=== PATIENT | female | born 1985 | race Caucasian/White ===

== ENCOUNTER 2016-08-18 03:34 | Emergency (ER) | payer OTHER ==
[~2016-08-18] VITALS: Ht 172.7 cm; Wt 93.0 kg
[~2016-08-18 03:34] MED LIST: LEVO75TA4 PO; LEVO88TA3 PO; ONDA4TAB6 PO; PROP20TA5 PO; SUMA4KIT SQ
[2016-08-18 03:37] VITALS: BP 169/109; PULSE 81; RESP 16; O2SAT 99
[2016-08-18] MEDS ORDERED: 0.9% Sodium Chloride 1,000 ML IV ONE (04:14)
[2016-08-18] MEDS ORDERED: Ondansetron 2 mg/mL 2 mL Inj IVPUSH PRN (04:15)
[2016-08-18] MEDS ORDERED: Ketorolac 15 mg/mL Inj IVPUSH ONE (04:15)
[2016-08-18 04:23] LABS: BASOPHILS % (AUTO) 0.4 % (0-3); MONOCYTES % (AUTO) 5.7 % (4-12); Mean Corpuscular Hemoglobin 27.3 pg (27.0-35.0); Mean Corpuscular Volume 80.2 fL (81-100); NEUTROPHILS % (AUTO) 77.4 % (40-74); Platelet Count 426 bil/L (150-400)
[2016-08-18] MEDS: HYDROmorphone 0.5 mg/0.5 mL iSecure Syringe IVPUSH PRN ×3 (04:39→07:42)
--- NOTE | 2016-08-18 05:08 | ED.REPORT ---
HPI-Abd Pain F Under 41 Date of Service August 18, 2016 ED Provider: Alexy Flynn MD A 30 year old female with a history of kidney stones and chronic migraines presents to the ED with left flank pain that began at 0000 this evening. Patient reports similar pain during her previous episode of kidney stones. Associated symptoms include nausea, vomiting and abdominal discomfort. Patient was asymptomatic yesterday. She denies any dysuria. Her last menstrual cycle was 07/17 and patient is currently on Mirena. Nursing Notes Stated Complaint: ABDOMINAL PAIN Chief Complaint: Female Abdominal Pain Nursing Notes Reviewed: Yes Allergies: Coded Allergies: Sulfa (Sulfonamide Antibiotics) (Verified Allergy, Severe, facial swelling , 03/12/16) doxycycline (Verified Allergy, Intermediate, nausea, vomiting, 03/12/16) guaifenesin (Verified Allergy, Intermediate, nausea, vomiting, 03/12/16) Scheduled Levothyroxine (Synthroid) 88 Mcg Tablet 88 MCG PO Sat/Sun Levothyroxine (Levothyroxine) 75 Mcg Tablet 75 MCG PO Sat,Sat,Sat,,Fr Propranolol HCl (Propranolol HCl) 20 Mg Tablet 20 MG PO BID Tamsulosin (Flomax) 0.4 Mg Capsule 0.4 MG PO DAILY Scheduled PRN Hydrocodone-Acetaminophen 5-325 mg (Hydrocodone-Acetaminophen 5-325 mg) 1 Each Tablet 1-2 TABLET PO Q4H PRN PRN For Pain Ondansetron (Zofran) 4 Mg Tablet 4 MG PO Q4H PRN PRN For Nausea Sumatriptan Succinate (Imitrex) 4 Mg/0.5 Ml Cartridge 4 MG SQ PRN Headache General Time Seen by MD: 04:14 Chief Complaint Flank pain left Hx Obtained From: Patient Arrived By: Walk-in Sudden in Onset?: Yes Onset Occurred: Just prior to arrival Symptom Duration: Since onset Progression since Onset: Unchanged Location: : Flank left Quality: Painful Radiation: : Abdomen lower Severity: Current: Moderate Severity: Maximum: Moderate Associated with: Reports: Nausea, Vomiting Pertinent Negative: Pt denies other symptoms Sexual History / Control: Reports IUD Recent Healthcare: No recent doctor visit, No recent hospitalization Past Medical History Past Medical History Hx of migraine headaches Past Surgical History none reported Smoking History Never Smoker Social History Alcohol Use: "Social" Drug Use: Denies drug use Ambulatory Status Independent Review of Systems GI: Reports: Abdominal pain, Nausea, Vomiting Female: Reports: Flank pain (Left ), Denies: Dysuria, Complete sys rev & neg: except as marked. Physical Exam Initial Vital Signs Vital Signs (First) Date Time Temp Pulse Resp B/P Pulse Ox O2 Delivery O2 Flow Rate FiO2 08/18/16 03:37 36.5 81 16 169/109 99 Room Air Initial VS: Reviewed, Vital signs abnormal Head / Eyes: Atraumatic, Normocephalic, PERRL Neck: Supple, Non-tender, Full range of motion Extremities: Vascular intact, Neuro intact, No swelling, No tenderness Skin: Warm, Dry, No cyanosis Neurologic: Alert, Oriented, Nonfocal Psychiatric: Mood/affect normal, Behavior normal, Normal thought content General/Constitutional: Awake, Alert Distress / Hydration: Positive: Distress moderate Appearance / Presentation: Positive: Pale Respiratory / Chest: Atraumatic, Breath sounds NL, Breath sounds = bilat, No respiratory distress Cardiovascular: Heart rate NL, Regular rhythm, Heart sounds NL Abdomen: Atraumatic, Soft Tenderness/Guarding/Rebound: Positive: Guarding involuntary, Tender LLQ..., Tender LUQ..., Tender flank L Back: Atraumatic Flank / Spine / Paraspinal: Positive: Flank tender L Interpretation & Diagnostics Lab Results Interpretation Result Diagram: 08/18/16 0408 08/18/16 0408 Test 08/18/16 04:08 08/18/16 04:30 White Blood Count 11.5th/mm3 (3.8-10.1) Red Blood Count 5.45mil/mm3 (3.90-5.20) Hemoglobin 14.9g/dL (12.0-15.6) Hematocrit 43.7% (35.0-46.0) Mean Corpuscular Volume 80.2fL (81-100) Mean Corpuscular Hemoglobin 27.3pg (27.0-35.0) Mean Corpuscular Hemoglobin Concent 34.1% (32.0-37.0) Red Cell Distribution Width 13.3% (12.3-15.4) Platelet Count 426bil/L (150-400) Neutrophils (%) (Auto) 77.4% (40-74) Lymphocytes (%) (Auto) 15.2% (14-46) Monocytes (%) (Auto) 5.7% (4-12) Eosinophils (%) (Auto) 1.0% (0-5) Basophils (%) (Auto) 0.4% (0-3) Sodium Level 140mEq/L (134-144) Potassium Level 3.6mEq/L (3.5-5.2) Chloride Level 100mEq/L (97-108) Carbon Dioxide Level 23mmol/L (18-29) Blood Urea Nitrogen 11mg/dL (6-20) Creatinine 0.76mg/dL (0.57-1.00) Estimat Glomerular Filtration Rate 129mL/min (>59) Glucose Level 115mg/dL (60-99) Calcium Level 9.5mg/dL (8.5-10.1) Magnesium Level 2.0mg/dL (1.6-2.6) Total Bilirubin 0.4mg/dL (0.0-1.2) Aspartate Amino Transf (AST/SGOT) 22U/L (0-50) Alanine Aminotransferase (ALT/SGPT) 20U/L (0-32) Alkaline Phosphatase 106U/L (25-150) Total Protein 8.6g/dL (6.4-8.4) Albumin 4.7g/dL (3.4-5.0) Lipase 32U/L (13-60) Hold Moffett Top Tube Received (Received) Urine Color Straw (YELLOW) Urine Appearance Cloudy (CLEAR,HAZY) Urine pH 8.0 (5.0-8.0) Urine Specific Morton 1.010 (1.003-1.035) Urine Protein Negativemg/dL (NEG,TRACE) Urine Glucose (UA) Negativemg/dL (NEGATIVE) Urine Ketones Negativemg/dL (NEGATIVE) Urine Occult Blood Small (NEGATIVE) Urine Nitrite Negative (NEGATIVE) Urine Bilirubin Negative (NEGATIVE) Urine Urobilinogen Normalmg/dL (NORMAL) Urine Leukocyte Esterase Negative (NEGATIVE) Urine RBC 3-10/hpf (0-2) Urine WBC 0-5/hpf (0-5) Urine Epithelial Cells Moderate/hpf (NONE-MOD) Urine Crystals Amorphous phosphates Urine Bacteria Few/hpf (NONE-FEW) Urine Hyaline Casts None/lpf (NONE) Urine Granular Casts None seen (NONE SEEN) Urine Waxy Casts None seen (NONE SEEN) Urine Red Blood Cell Casts None seen (NONE SEEN) Urine White Blood Cell Casts None seen (NONE SEEN) Urine Mucus None seen (None Seen) Urine Trichomonas None seen (NONE SEEN) Urine Yeast None (NONE SEEN) Urinalysis Comment None Urine Culture Reflexed Not indicated Hold Urine Received (Received) Lab values outside NL range: no clinical significance. Lab Results Interpretation: Minimal microscopic hematuria ECG Interpretation ECG Interpretation: Sinus Rhythm Rate 81 Time: 05:31 Interpreted by: ED physician Re-Eval/Medical Decision Med Decision/Clinical Course 30-year-old female with 3.2 mm distal left ureteral stone. She was placed on Flomax pain and nausea medication. She was discharged home. Follow-up with Dr. Medina as needed for persistent pain. Re-Evaluation/Progress : Time of Eval: 05:14 Patient Status: Condition worsened Re-Evaluation/Progress Note: Patient is rechecked. The patient's pain has worsened. She is informed of her lab results and the plan to obtain a CT scan. Counseled Regarding: Diagnosis, Lab results Discharge & Departure Primary Impression: Left ureteral stone Disposition: Home Discharge Condition All VS Reviewed: Yes Condition: Improved Patient Instructions: Renal Colic (ED) Additional Instructions: You have a small stone in the distal left ureter. It should pass on its own. Hydrocodone/APAP (Vicodin) 5/325, one to 2 tablets every 4-6 hours as needed for severe pain, #10 prescription written. Ondansetron as needed for nausea and vomiting. Tamsulosin (Flomax) 0.4 mg daily, #3 prescription written. Strain all urine sit so you know when the stone passes. Drink plenty of fluids. Referrals: Anibal Kinney MD (PCP) Prosper Medina MD Attestation Portions of this note were transcribed by Vijay Faria. I, Dr. Flynn personally performed the history, physical exam and medical decision-making; I reviewed and confirmed the accuracy of the information in the transcribed note. Signed by: Dc Patel, 08/18/16 0600. copies to: Anibla Kinney MD, Howard L MD August 18, 2016 05:08 VIJAY FARIA August 18, 2016 05:15
[2016-08-18 05:13] LABS: APPEARANCE,URINE CLOUDY (CLEAR,HAZY); COLOR,URINE STRAW (YELLOW); OCCULT BLOOD,URINE SMALL (NEGATIVE); UROBILINOGEN,URINE NORMAL (NORMAL)
[2016-08-18 06:26] VITALS: BP 130/75; PULSE 86; RESP 14; O2SAT 96
[2016-08-18] MEDS ORDERED: HYDR-4003 PO (07:49)
[2016-08-18] MEDS ORDERED: TAMS0.4C98 PO (07:49)
--- NOTE | 2016-08-18 08:01 | DRSVH ---
PROCEDURE: CT KUB ([id number]) INDICATIONS: left flank pain, micro hematuria TECHNIQUE: Noncontrast 5 mm thick sections acquired from the diaphragms to the symphysis. 5 mm thick coronal an d sagittal reformats were then performed. For radiation dose reduction, the following was used: aut omated exposure control, adjustment of mA and/or kV according to patient size. COMPARISON: None. FINDINGS: Image quality: Excellent. Lung bases: There is mild atelectasis at the bilateral lung bases. No pleural effusion or pneumothora x. Urinary system: The right kidney is normal in size. No hydronephrosis or nephrolithiasis. The left ki dney is mildly enlarged. There is mild left hydronephrosis and trace perinephric fat stranding. The l eft ureter is moderately dilated throughout its course. A 3 mm diameter calculus is present at the le ft UVJ (series 2, image 84). The bladder is thin-walled and fluid filled. No bladder calculi. An IUD is present in the uterine fundus. The ovaries are grossly unremarkable. Other solid organs: Liver and spleen are normal in size. Gallbladder is surgically absent. Pancrea s is normal in contours. No adrenal nodules. Peritoneum and bowel: Unenhanced bowel loops demonstrate normal wall thickness and caliber. The kathleen endix is thin walled. Trace radiopaque debris is present at the origin of the appendix suggesting the presence of a fecalith. No free fluid or air. Nodes and vessels: No retroperitoneal or mesenteric adenopathy by size criteria. Aorta and inferior vena cava are normal in caliber. Abdominal wall: No ventral hernias. Pelvis: No free pelvic fluid. No inguinal hernias or adenopathy. Bones: No suspicious bony lesions. No vertebral body compression fractures. IMPRESSION: 1. 3 mm diameter left UVJ calculus with resultant mild left hydronephrosis and perinephric fat strand ing. These findings are concordant with the overnight interpretation. 2. Thin walled appendix with probable fecalith at the origin. Dictated by: Alba Candelario M.D. on 08/18/2016 at 7:56 Approved by: Alba Candelario M.D. on 08/18/2016 at 7:59
[2016-08-18 08:08] VITALS: BP 105/52; PULSE 84; RESP 20; O2SAT 98
== END 2016-08-18 08:09 | disposition home or self-care (01) ==
LOC: SED 03:34
DX: N20.1 Calculus of ureter (principal); Z88.2 Allergy status to sulfonamides; Z88.1 Allergy status to other antibiotic agents; Z88.8 Allergy status to other drugs, medicaments and biological substances
CPT/HCPCS: 36415; 74176; 80053; 81000; 81025; 83690; 83735; 85025; 93005; 96361; 96374; 96375; 96376; 99285; J1170; J1885; J2405; J7030